=== PATIENT | male | born 1995 | race African-American/Black ===

== ENCOUNTER 2023-08-24 06:24 | Day surgery (SDC) | payer SELFPAY ==
[2023-08-18 13:23] VITALS: BMI 21.8
[2023-08-24 06:51] VITALS: BP 111/69; PULSE 67; RESP 18; TEMP 96.8
[2023-08-24] MEDS ORDERED: POVIDONE-IODINE 5% OPHTHALMIC PREP 30 ML SOLUTION ONE (07:16)
[2023-08-24] MEDS ORDERED: TETRACAINE 0.5% OPHTH SOLN 2 ML BOTTLE ONE (07:16)
[2023-08-24] MEDS ORDERED: ERYTHROMYCIN 0.5% OPHTHALMIC OINTMENT 3.5 GM TUBE ONE (07:16)
[2023-08-24] MEDS ORDERED: ceFAZolin SODIUM 1 GM VIAL ONE (07:16)
[2023-08-24] MEDS ORDERED: BUPIVACAINE HCL/PF 0.5% (5MG/ML) 10 ML VIAL ONE (07:17)
[2023-08-24] MEDS ORDERED: LIDOCAINE 1%/EPI 1:100000 (50 ML MULTI DOSE VIAL) ONE (07:17)
[2023-08-24] MEDS ORDERED: PROPOFOL 20 ML ONE (07:40)
[2023-08-24] MEDS ORDERED: MIDAZOLAM HCL 2 MG/2 ML SINGLE DOSE VIAL ONE (07:40)
[2023-08-24] MEDS ORDERED: ONDANSETRON 4 MG/2 ML VIAL IVPUSH PRN (07:50)
[2023-08-24] MEDS ORDERED: oxyCODONE HCL 5 MG TABLET PO PRN (07:50)
[2023-08-24] MEDS ORDERED: LACTATED RINGERS SOLUTION 1,000 ML IV SCH (08:00)
== END 2023-08-24 08:17 | disposition home or self-care (01) ==
LOC: FASU 06:24
PROVIDERS: ATTEND Ophthalmology
PROC: 08SP0ZZ Reposition Left Upper Eyelid, Open Approach (ICD-10-PCS; principal; 2023-08-24)
DX: Z53.8 Procedure and treatment not carried out for other reasons (principal); H02.402 Unspecified ptosis of left eyelid

== ENCOUNTER 2023-11-16 07:50 | Day surgery (SDC) | payer SELFPAY ==
[2023-11-12 13:01] VITALS: BMI 22.1
[2023-11-16] MEDS ORDERED: PROPOFOL 40 ML ONE (08:25)
[2023-11-16] MEDS ORDERED: MIDAZOLAM HCL 2 MG/2 ML SINGLE DOSE VIAL ONE (08:25)
[2023-11-16] MEDS ORDERED: DEXAMETHASONE SOD PHOSPHATE 4 MG/1 ML VIAL ONE (08:25)
[2023-11-16] MEDS ORDERED: ceFAZolin SODIUM 1 GM VIAL ONE ×2 (08:25→09:28)
[2023-11-16] MEDS ORDERED: ONDANSETRON 4 MG/2 ML VIAL ONE ×2 (08:25→11:31)
[2023-11-16] MEDS ORDERED: TETRACAINE 0.5% OPHTH SOLN 2 ML BOTTLE ONE (09:28)
[2023-11-16] MEDS ORDERED: POVIDONE-IODINE 5% OPHTHALMIC PREP 30 ML SOLUTION ONE (09:28)
[2023-11-16] MEDS ORDERED: ERYTHROMYCIN 0.5% OPHTHALMIC OINTMENT 3.5 GM TUBE ONE (09:28)
[2023-11-16] MEDS ORDERED: LIDOCAINE 1%/EPI 1:100000 (20 ML MULTI DOSE VIAL) ONE (09:29)
[2023-11-16] MEDS ORDERED: oxyCODONE HCL 5 MG TABLET PO PRN (10:51)
[2023-11-16] MEDS ORDERED: LACTATED RINGERS SOLUTION 1,000 ML IV SCH (11:00)
[2023-11-16] MEDS ORDERED: FENTANYL CITRATE/PF 50 MCG/ML VIAL ONE (11:21)
[2023-11-16] MEDS: ONDANSETRON 4 MG/2 ML VIAL IVPUSH PRN (11:33)
[2023-11-16] MEDS ORDERED: PROMETHAZINE HCL 25 MG/1 ML VIAL ONE (11:57)
[2023-11-16] MEDS ORDERED: PROMETHAZINE HCL 25 MG/1 ML VIAL IM ONE (11:58)
[2023-11-16 12:25] VITALS: PULSE 77; RESP 16; TEMP 97
[2023-11-16] MEDS ORDERED: PROMETHAZINE HCL 25 MG/1 ML VIAL IVPB PRN (12:29)
[2023-11-16 13:07] VITALS: BP 131/76
== END 2023-11-16 12:55 | disposition home or self-care (01) ==
LOC: FASU 07:50
PROVIDERS: ATTEND Ophthalmology
CPT/HCPCS: 94760